=== PATIENT | male | born 1945 | race Caucasian/White ===

== ENCOUNTER → 2016-02-29 | Outpatient (CLI) | payer OTHER | LOC: YCFC.O 09:34 | PROVIDERS: ATTEND Nurse Practitioner Family | DX: E78.2 Mixed hyperlipidemia (principal); E03.9 Hypothyroidism, unspecified; Z12.5 Encounter for screening for malignant neoplasm of prostate ==

== ENCOUNTER → 2016-08-21 | Outpatient (CLI) | payer OTHER ==
--- NOTE | 2016-08-21 17:21 | RAD ---
EXAM DESCRIPTION: Wrist,Left 3 Views CLINICAL HISTORY: 71 years, Male, WRIST JOINT PAIN COMPARISON: None TECHNIQUE: AP/ lateral/ oblique views of the left wrist. FINDINGS: Left wrist study shows no fracture or dislocation. Moderately advanced degenerative changes at the base of the thumb consistent with degenerative arthropathy is present. Mild degenerative changes at the wrist are noted with the navicular intact. IMPRESSION: 1. Degenerative changes predominantly involving the base of the thumb with intact wrist. Electronically signed by: Phi Hogan MD 08/21/2016 5:22 PM CDT
== END | disposition home or self-care (01) ==
LOC: YCFC.O 10:55
PROVIDERS: ATTEND Nurse Practitioner Family
DX: M25.539 Pain in unspecified wrist (principal)

== ENCOUNTER → 2017-09-13 | Outpatient (CLI) | payer OTHER ==
--- NOTE | 2017-09-13 15:56 | CT ---
EXAM DESCRIPTION: CT ABDOMEN AND PELVIS WITHOUT AND WITH CONTRAST CLINICAL HISTORY: DIVERTICULITIS OF INTESTINE COMPARISON: None Available. TECHNIQUE: CT of the abdomen and pelvis are performed prior to and during IV bolus administration of routine adult dose of nonionic iodinated contrast. No oral contrast. FINDINGS: CT abdomen The lung bases are clear of infiltrate. Liver is normal in size and parenchymal appearance on precontrast images. Aorta is narrowed by arteriosclerotic plaque and measures 3. Measures 2.3 cm in diameter. Spleen, pancreas, and kidneys are unremarkable on precontrast images. No renal stones. There is no lymphadenopathy, inflammation, or free fluid observed. After IV contrast, repeat helical scanning through the upper abdomen shows a few tiny renal cortical lesions probably cysts. A slightly more prominent cyst in the posterior medial right kidney measures 1.3 cm. Normal enhancement of the liver spleen and pancreas. Appendix appears normal, near the inferior right lobe of the liver. Delayed images show normal accumulation of contrast in the urinary collecting systems with no filling defects in the renal pelves or ureters. CT pelvis No inflammation is seen around the cecum or terminal ileum or sigmoid colon. Appendix is normal in appearance. No stones are seen in the distal ureters or bladder. Normal pelvic small bowel loops. No fracture or lytic lesion of the osseous structures. Postcontrast images show normal enhancement of the pelvic vessels. Prostate is prominent 4.4 cm in transverse dimension. Fatty patulous left inguinal canal is seen without bowel in a hernia. Extensive diverticulosis of the sigmoid colon is seen. No definite acute inflammatory changes around the colon or around any certain diverticulum to suggest acute diverticulitis. Coronal reformatted images show mild strandy inflammatory changes in the fat of the anterior lower left abdomen not directly associated with the colon. Differential considerations would include epiploic appendicitis or mild focal inflammation of the omentum (omentitis or small omental infarct). No focal inflamed diverticulum of the colon to suggest a cause of inflammation in this area. IMPRESSION: Fatty inflammation in the anterior left lower abdomen with differential considerations including epiploic appendicitis. See above. This exam was performed according to our departmental dose-optimization program, which includes automated exposure control, adjustment of the mA and/or kV according to patient size and/or use of iterative reconstruction technique. Total DLP is 2412.73 mGycm. Electronically signed by: Alec Herrera MD 09/13/2017 3:55 PM CDT
== END ==
LOC: LAB.O 10:08
PROVIDERS: ATTEND Nurse Practitioner Family
DX: K57.92 Diverticulitis of intestine, part unspecified, without perforation or abscess without bleeding (principal)

== ENCOUNTER 2019-09-18 13:43 | Emergency (ER) | payer MEDICARE, OTHER ==
[2019-09-18] MEDS ORDERED: ASPIRIN (CHEWABLE) 81 MG TAB ONE (13:56)
[2019-09-18] MEDS ORDERED: ASPIRIN (CHEWABLE) 81 MG TAB PO ONE (13:59)
[2019-09-18] MEDS ORDERED: ASPIRIN TABLET 325 MG TAB PO ONE (14:00)
[2019-09-18] MEDS ORDERED: SODIUM CHLORIDE 0.9% (FLUSH) 10 ML SYG IV PRN (14:00)
[2019-09-18] MEDS ORDERED: ONDANSETRON INJ 4 MG/2 ML VIAL IV ONE (14:00)
[2019-09-18 14:01] VITALS: TEMP 97.3
--- NOTE | 2019-09-18 14:25 | RAD ---
EXAM DESCRIPTION: Chest,1 View CLINICAL HISTORY: sob COMPARISON: May 25, 2015 IMPRESSION: Single AP portable upright view of the chest shows cardiac silhouette and pulmonary vasculature to be within normal limits. Left clavian dual-lead transvenous cardiac pacemaker is stable from previous. Lungs are normally aerated and clear. No obvious pleural effusion or pneumothorax is seen. Electronically signed by: Kalpesh Johnson MD 09/18/2019 2:23 PM CDT
--- NOTE | 2019-09-18 14:32 | ED.PDOC ---
History of Present Illness - General Chief Complaint: Cardiovascular Problem Stated Complaint: chest pain Time Seen by Provider: 09/18/19 13:59 Source: patient, RN notes reviewed, Vital Signs reviewed, family Exam Limitations: no limitations - History of Present Illness Initial Comments: 74 y/o male was cutting tree limbs and started to have chest pain. He felt winded and was "pouring sweat". This has never happened to him before. He has a hx of A fib and has a pacemaker. 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 He actually took his 's ntg. Upon arrival here his pain was a zero. Timing/Duration: other - pain lasted 45 minutes and he used 2 ntg Severity/Quality: moderate, aching, pressure Location: central Chest Pain Radiation: no radiation Activities at Onset: activity Prior Chest Pain/Cardiac Workup: no prior chest pain, cardiac cath - early 's, echocardiography Improving Factors: rest Worsening Factors: movement Nitro Today/Relief: 0.4 mg x 2 Aspirin Treatment Today: 325 mg x 1 Associated Symptoms: diaphoresis Allergies/Adverse Reactions: Allergies Penicillin G Allergy (Verified 09/18/19 14:03) Home Medications: Ambulatory Orders Nitroglycerin [Nitrostat] 0.4 mg SL Q5MIN PRN #24 sub 09/18/19 Review of Systems - Review of Systems Constitutional: States: diaphoresis EENTM: States: no symptoms reported Respiratory: States: short of breath Cardiology: States: chest pain Gastrointestinal/Abdominal: States: no symptoms reported Genitourinary: States: no symptoms reported Musculoskeletal: States: no symptoms reported Skin: States: no symptoms reported Neurological: States: no symptoms reported Endocrine: States: no symptoms reported Hematologic/Lymphatic: States: no symptoms reported Past Medical History (General) - Patient Medical History Hx Asthma: No Hx Cardiac Disorders: Yes - atrial fibrillation Hx Congestive Heart Failure: No Hx Pacemaker: Yes Hx Hypertension: Yes Hx Thyroid Disease: Yes Surgical History: pacemaker - Vaccination History Hx Influenza Vaccination: No Hx Pneumococcal Vaccination: No - Activities of Daily Living Hospice Agency (if applicable):: None - Female History Patient is a Female of Child Bearing Age (10 -59 yrs old): No Family Medical History - Family History Mother Family History: Unknown Physical Exam - Physical Exam General Appearance: Alert, Comfortable, No apparent distress, Well Developed, Well Groomed Eyes, Ears, Nose, Throat Exam: PERRL/EOMI, normal ENT inspection, pharynx normal Neck: non-tender, full range of motion, supple, normal inspection Respiratory: chest non-tender, lungs clear, normal breath sounds, no respiratory distress, no accessory muscle use Cardiovascular/Chest: normal peripheral pulses, regular rate, rhythm, no edema, no JVD, no murmur Gastrointestinal/Abdominal: normal bowel sounds, non tender, soft, no organomegaly, no pulsatile mass Extremity: normal range of motion, non-tender, normal inspection, no pedal edema, no calf tenderness 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 Copy, Patient Portal Self Enrollment Instructions: DI for Chest Pain, Chest Pain (DC) Referrals: Lorene Landon NP [Primary Care Provider] - 1-2 Weeks Prescriptions: Nitroglycerin [Nitrostat] 0.4 mg SL Q5MIN PRN #24 sub PRN Reason: Chest Pain Home Medications: Ambulatory Orders Nitroglycerin [Nitrostat] 0.4 mg SL Q5MIN PRN #24 sub 09/18/19
[2019-09-18 16:39] VITALS: BP 124/65; O2SAT 99
== END 2019-09-18 16:39 | disposition home or self-care (01) ==
LOC: ER 13:43
DX: I20.9 Angina pectoris, unspecified (principal); I48.91 Unspecified atrial fibrillation; I10 Essential (primary) hypertension; E07.9 Disorder of thyroid, unspecified; R06.02 Shortness of breath; Z95.0 Presence of cardiac pacemaker; Z88.0 Allergy status to penicillin
CPT/HCPCS: 36415; 71045; 80048; 80076; 82550; 82553; 83880; 84484; 85025; 85610; 85730; 93005; J2405